=== PATIENT | male | born 1945 | race Caucasian/White ===

== ENCOUNTER 2017-01-04 05:31 | Day surgery (SDC) | payer BC ==
--- NOTE | ~2017-01-04 | EGD ---
EGD REPORT [facility] [address] [address] NAME: SCAR MILLS : 43 STATUS : [facility]#: [id number] AGE: 71 ADM/REG DATE : 01/04/17 MR#: [id number] REPORT SERV DATE: 01/07/17 DICTATED BY: HELGA ZIMMERMAN DATE: 01/07/17 REPORT STATUS : Draft [facility]: [facility] DATE: 01/07/17 Endoscopy Center Patient Name: Scar Mills Date of : 1945 Attending MD: HELGA ZIMMERMAN, Procedure Date No Time: 01/04/2017 Procedure: Colonoscopy Indications: Screening in patient at increased risk: Family history of 1st-degree relative with colorectal cancer Referring MD: NEREIDA WOOD Medicines: Monitored Anesthesia Care Complications: No immediate complications. Estimated blood loss: None. Procedure: Pre-Anesthesia Assessment: - ASA Grade Assessment: III - A patient with severe systemic disease. After I obtained informed consent, the scope was passed under direct vision. Throughout the procedure, the patient's blood pressure, pulse, and oxygen saturations were monitored continuously. The CF [id number] was introduced through the anus with the intention of advancing to the cecum. The scope was advanced to the descending colon before the procedure was aborted. Medications were given. The colonoscopy was performed without difficulty. The patient tolerated the procedure well. The quality of the bowel preparation was good. Findings: The perianal and digital rectal examinations were normal. A partially obstructing large mass was found in the distal descending colon. The mass was circumferential. Biopsies were taken with a cold forceps for histology. Verification of patient identification for the specimen was done. Estimated blood loss was minimal. Area was successfully injected with Spot (carbon black) for tattooing. This was located at about 50 cm from the anus. Multiple small-mouthed diverticula were found in the sigmoid colon and in the descending colon. Internal hemorrhoids were found during retroflexion and were Grade I (internal hemorrhoids that do not prolapse). Impression: - Partially obstructing tumor in the distal descending colon. Biopsied. Biopsied. Injected. - Diverticulosis in the sigmoid colon and in the descending colon. - Internal hemorrhoids. EGD REPORT [address] [address] NAME: SCAR MILLS : 43 STATUS : [facility] PAT#: [id number] AGE: 71 ADM/REG DATE : 01/04/17 MR#: [id number] REPORT SERV DATE: 01/07/17 DICTATED BY: HELGA ZIMMERMAN DATE: 01/07/17 REPORT STATUS : Draft TRANSCRIBED BY: [employer] DATE: 01/07/17 Recommendation: - Patient has a contact number available for emergencies. The signs and symptoms of potential delayed complications were discussed with the patient. Return to normal activities tomorrow. Written discharge instructions were provided to the patient. - Return to previous diet. - Continue present medications. - Await pathology results. - Return to referring physician. - Repeat colonoscopy after studies are complete for surveillance. Procedure Code(s): --- Professional --- 71515, 52, Colonoscopy, flexible, proximal to splenic flexure; with biopsy, single or multiple 93988, 52, Colonoscopy, flexible, proximal to splenic flexure; with directed submucosal injection(s), any substance Diagnosis Code(s): --- Professional --- D49.0, Neoplasm of unspecified behavior of digestive system K64.0, First degree hemorrhoids K57.30, Diverticulosis of large intestine without perforation or abscess without bleeding Z12.11, Encounter for screening for malignant neoplasm of colon Z80.0, Family history of malignant neoplasm of digestive organs CPT copyright 2013 [employer]. All rights reserved. The codes documented in this report are preliminary and upon intensive care medicine specialist review may be revised to meet current compliance requirements. HELGA ZIMMERMAN, 01/04/2017 7:56 AM Number of Addenda: 0 Note Initiated On: 01/04/2017 7:02 AM Scope Withdrawal Time 0 hours 0 minutes 0 seconds [id number] [place] [id number]
--- NOTE | ~2017-01-04 | EGD ---
EGD REPORT [facility] [address] [address] NAME: SCAR MILLS : 43 STATUS : REG [facility]#: [id number] AGE: 71 ADM/REG DATE : 01/04/17 MR#: [id number] REPORT SERV DATE: 01/04/17 DICTATED BY: HELGA ZIMMERMAN DATE: 01/04/17 REPORT STATUS : Draft [facility]: [facility] DATE: 01/04/17 Endoscopy Center Patient Name: Scar Mills Date of : 1945 Attending MD: HELGA ZIMMERMAN, Procedure Date No Time: 01/04/2017 Procedure: Colonoscopy Indications: Screening in patient at increased risk: Family history of 1st-degree relative with colorectal cancer Referring MD: NEREIDA WOOD Medicines: Monitored Anesthesia Care Complications: No immediate complications. Estimated blood loss: None. Procedure: Pre-Anesthesia Assessment: - ASA Grade Assessment: III - A patient with severe systemic disease. After I obtained informed consent, the scope was passed under direct vision. Throughout the procedure, the patient's blood pressure, pulse, and oxygen saturations were monitored continuously. The CF [id number] was introduced through the anus with the intention of advancing to the cecum. The scope was advanced to the descending colon before the procedure was aborted. Medications were given. The colonoscopy was performed without difficulty. The patient tolerated the procedure well. The quality of the bowel preparation was good. Findings: The perianal and digital rectal examinations were normal. A partially obstructing large mass was found in the distal descending colon. The mass was circumferential. Biopsies were taken with a cold forceps for histology. Verification of patient identification for the specimen was done. Estimated blood loss was minimal. Area was successfully injected with Spot (carbon black) for tattooing. This was located at about 50 cm from the anus. Multiple small-mouthed diverticula were found in the sigmoid colon and in the descending colon. Internal hemorrhoids were found during retroflexion and were Grade I (internal hemorrhoids that do not prolapse). Impression: - Partially obstructing tumor in the distal descending colon. Biopsied. Biopsied. Injected. - Diverticulosis in the sigmoid colon and in the descending colon. - Internal hemorrhoids. EGD REPORT [address] [address] NAME: SCAR MILLS : 43 STATUS : [facility] PAT#: [id number] AGE: 71 ADM/REG DATE : 01/04/17 MR#: [id number] REPORT SERV DATE: 01/04/17 DICTATED BY: HELGA ZIMMERMAN DATE: 01/04/17 REPORT STATUS : Draft TRANSCRIBED BY: [employer] DATE: 01/04/17 Recommendation: - Patient has a contact number available for emergencies. The signs and symptoms of potential delayed complications were discussed with the patient. Return to normal activities tomorrow. Written discharge instructions were provided to the patient. - Return to previous diet. - Continue present medications. - Await pathology results. - Return to referring physician. - Repeat colonoscopy after studies are complete for surveillance. Procedure Code(s): --- Professional --- 28683, 52, Colonoscopy, flexible, proximal to splenic flexure; with biopsy, single or multiple 15552, 52, Colonoscopy, flexible, proximal to splenic flexure; with directed submucosal injection(s), any substance Diagnosis Code(s): --- Professional --- D49.0, Neoplasm of unspecified behavior of digestive system K64.0, First degree hemorrhoids K57.30, Diverticulosis of large intestine without perforation or abscess without bleeding Z12.11, Encounter for screening for malignant neoplasm of colon Z80.0, Family history of malignant neoplasm of digestive organs CPT copyright 2013 [employer]. All rights reserved. The codes documented in this report are preliminary and upon second chef review may be revised to meet current compliance requirements. HELGA ZIMMERMAN, 01/04/2017 7:56 AM Number of Addenda: 0 Note Initiated On: 01/04/2017 7:02 AM Scope Withdrawal Time 0 hours 0 minutes 0 seconds [id number] [place] [id number]
--- NOTE | ~2017-01-04 | EGD ---
EGD REPORT [facility] [address] [address] NAME: SCAR MILLS : 43 STATUS : REG [facility]#: [id number] AGE: 71 ADM/REG DATE : 01/04/17 MR#: [id number] REPORT SERV DATE: 01/04/17 DICTATED BY: HELGA ZIMMERMAN DATE: 01/04/17 REPORT STATUS : Draft TRANSCRIBED BY: [facility] DATE: 01/04/17 Endoscopy Center Patient Name: Scar Mills Date of : 1945 Attending MD: HELGA ZIMMERMAN, Procedure Date No Time: 01/04/2017 Procedure: Colonoscopy Indications: Screening in patient at increased risk: Family history of 1st-degree relative with colorectal cancer Referring MD: NEREIDA WOOD Medicines: Monitored Anesthesia Care Complications: No immediate complications. Estimated blood loss: None. Procedure: Pre-Anesthesia Assessment: - ASA Grade Assessment: III - A patient with severe systemic disease. After I obtained informed consent, the scope was passed under direct vision. Throughout the procedure, the patient's blood pressure, pulse, and oxygen saturations were monitored continuously. The CF [id number] was introduced through the anus with the intention of advancing to the cecum. The scope was advanced to the descending colon before the procedure was aborted. Medications were given. The colonoscopy was performed without difficulty. The patient tolerated the procedure well. The quality of the bowel preparation was good. Findings: The perianal and digital rectal examinations were normal. A partially obstructing large mass was found in the distal descending colon. The mass was circumferential. Biopsies were taken with a cold forceps for histology. Verification of patient identification for the specimen was done. Estimated blood loss was minimal. Area was successfully injected with Spot (carbon black) for tattooing. This was located at about 50 cm from the anus. Multiple small-mouthed diverticula were found in the sigmoid colon and in the descending colon. Internal hemorrhoids were found during retroflexion and were Grade I (internal hemorrhoids that do not prolapse). Impression: - Partially obstructing tumor in the distal descending colon. Biopsied. Biopsied. Injected. - Diverticulosis in the sigmoid colon and in the descending colon. - Internal hemorrhoids. EGD REPORT [address] [address] NAME: SCAR MILLS : 43 STATUS : REG [facility] PAT#: [id number] AGE: 71 ADM/REG DATE : 01/04/17 MR#: [id number] REPORT SERV DATE: 01/04/17 DICTATED BY: HELGA ZIMMERMAN DATE: 01/04/17 REPORT STATUS : Draft TRANSCRIBED BY: [employer] DATE: 01/04/17 Recommendation: - Patient has a contact number available for emergencies. The signs and symptoms of potential delayed complications were discussed with the patient. Return to normal activities tomorrow. Written discharge instructions were provided to the patient. - Return to previous diet. - Continue present medications. - Await pathology results. - Return to referring physician. - Repeat colonoscopy after studies are complete for surveillance. Procedure Code(s): --- Professional --- 27498, 52, Colonoscopy, flexible, proximal to splenic flexure; with biopsy, single or multiple 05144, 52, Colonoscopy, flexible, proximal to splenic flexure; with directed submucosal injection(s), any substance Diagnosis Code(s): --- Professional --- D49.0, Neoplasm of unspecified behavior of digestive system K64.0, First degree hemorrhoids K57.30, Diverticulosis of large intestine without perforation or abscess without bleeding Z12.11, Encounter for screening for malignant neoplasm of colon Z80.0, Family history of malignant neoplasm of digestive organs CPT copyright 2013 [employer]. All rights reserved. The codes documented in this report are preliminary and upon legal manager review may be revised to meet current compliance requirements. HELGA ZIMMERMAN, 01/04/2017 7:56 AM Number of Addenda: 0 Note Initiated On: 01/04/2017 7:02 AM Scope Withdrawal Time 0 hours 0 minutes 0 seconds [id number] [place] [id number]
[~2017-01-04 05:31] MED LIST: ALIGN4 MG PO; ASA5GR PO; ASAB PO; ATEN25 PO; ELDERTONIC PO; FISH OIL1200 MG PO; FLOMAX4 PO; FLONASE NAS; GAS-X80 MG; LIPITOR40 PO; LORTAB 5 PO; NITROSTAT0.4 MG SL; PRIN10 PO; SUPER B COMP PO; TRAZ50 PO; ULTRAM50 PO; ZOCOR80 MG PO
[2017-01-22] MEDS ORDERED: LINZESS 290 M290 MCG PO (09:45)
== END 2017-01-04 23:59 | disposition home or self-care (01) ==
LOC: DMU 05:31
PROVIDERS: Internal Medicine Gastroenterology
PROC: 3E0H8GC Introduction of Other Therapeutic Substance into Lower GI, Via Natural or Artificial Opening Endoscopic (ICD-10-PCS; 2017-01-04)
PROC: 0DBM8ZX Excision of Descending Colon, Via Natural or Artificial Opening Endoscopic, Diagnostic (ICD-10-PCS; principal; 2017-01-04 07:30)
DX: Z12.11 Encounter for screening for malignant neoplasm of colon (principal); C18.6 Malignant neoplasm of descending colon; K64.0 First degree hemorrhoids; K57.30 Diverticulosis of large intestine without perforation or abscess without bleeding; E78.00 Pure hypercholesterolemia, unspecified; I10 Essential (primary) hypertension; I25.10 Atherosclerotic heart disease of native coronary artery without angina pectoris; Z88.8 Allergy status to other drugs, medicaments and biological substances; Z80.0 Family history of malignant neoplasm of digestive organs; Z96.652 Presence of left artificial knee joint; Z98.890 Other specified postprocedural states
CPT/HCPCS: 88305

== ENCOUNTER 2017-01-28 13:07 | Inpatient (IN) | payer BC ==
[2017-01-26 11:32] LABS: HEMATOCRIT 35.3 % (40.0-51.0); HEMOGLOBIN 11.6 g/dL (13.6-17.8)
[2017-01-26 11:43] LABS: CALCIUM, SERUM 8.8 MG/DL (8.5-10.4); CHLORIDE, SERUM 106 MMOL/L (96-112); CO2 (CARBON DIOXIDE) 30 MMOL/L (24-34); CREATININE 0.88 MG/DL (0.70-1.30); GFR AFRICAN AMERICAN 99 ML/MIN (>=60); GFR NON AFRICAN AMERICAN 86 ML/MIN (>=60); POTASSIUM, SERUM 4.9 MMOL/L (3.5-5.3); SODIUM, SERUM 139 MMOL/L (135-148)
[2017-01-26 11:44] LABS: BUN (BLOOD UREA NITROGEN) 16 MG/DL (6-23); GLUCOSE, SERUM 67 MG/DL (60-99)
--- NOTE | ~2017-01-28 | OP ---
Record Of Operation [facility] [address] [place]. 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 PROCEDURE: Laparoscopic low anterior resection with mobilization of splenic flexure. SURGEON: Tomi Anderson MD RESIDENT: Phuc Landa MD ANESTHESIA: General. ESTIMATED BLOOD LOSS: Less than 50 mL. INDICATION: Mr. Mills is a 71-year-old male who presented with a left-sided colon cancer, laparoscopic, possible open resection was offered to him. The risks including bleeding, infection, cardiac and pulmonary complications, DVT, anastomotic leak, abdominal wall complications need for open operation, recuperation among others were discussed with him, and he agreed to proceed. DESCRIPTION OF PROCEDURE: The patient was taken to the operating room, placed in a supine position. General anesthesia was induced. Lower extremities were placed in stirrups and well padded. The abdomen and perineum were prepped and draped, and a small incision was made in the umbilicus and Ainsley technique was utilized to place a 12 mm trocar. Air insufflation was obtained to 15 mmHg and then the right lower quadrant 12 mm trocar and an epigastric left lateral and suprapubic 5 mm trocars were placed. Evaluation of the abdomen revealed no evidence for intraperitoneal metastasis. The tumor itself was identified just at the junction of the descending and sigmoid colon and there was ink and an obvious mass. The sigmoid colon was then mobilized in the sigmoid recess identifying the ureter and then the hepatic. The splenic flexure and descending colon were completely mobilized using electrocautery around to the distal transverse colon. Having mobilized this, then I scored the sulcus just posterior to the inferior mesenteric artery and again identified the ureter from a medial to lateral approach and identified the inferior mesenteric artery and the pelvic sympathetics which were kept out of arm's way. I then clipped the inferior mesenteric artery twice on the stay side, once on the go side, and divided this and then dissected the inferior mesenteric vein at 2, came out underneath the duodenum and clipped it with Ligaclips and divided this and then subsequently dissected in a mesorectal specific technique. The rectum down to the level of the junction of the mid and upper rectum and then divided the mesentery of the rectum at a right angle using LigaSure device. The echelon stapler stick was then placed and fired and then the specimen was brought out of the enlarged umbilical port site and there was a lot of diverticulosis, so I went above that so that I had a good bowel for anastomosis. There was adequate length at that site and excellent blood supply, and therefore, the area was isolated with towels. A Pablo clamp Record Of Operation [facility] [address] [facility]. [address] NAME: SCAR MILLS : 43 STATUS : ADM IN [facility]#: [id number] AGE: 71 ADM/REG DATE : 01/28/17 MR#: [id number] REPORT SERV DATE: 01/30/17 DICTATED BY: GORDON ANDERSON DATE: 01/29/17 REPORT STATUS : Draft TRANSCRIBED BY: LUIS E DATE: 01/29/17 was placed on the specimen and the specimen divided. A 2-0 Prolene pursestring was placed and a 29 anvil was placed and the pursestring tied down and the anastomosis was then performed after placing the anvil back into the abdominal cavity and reestablishing pneumoperitoneum and the stapler was fired and the rings were removed but were not sent to pathologist and air insufflation revealed no air leak. There was no tension, appeared to have excellent blood supply. The abdomen was checked for hemostasis and then the midline port site was closed with 0 PDS and the right lower quadrant 12 mm site with 0 Vicryl and the skin loosely with 3-0 Vicryl and otherwise packed open. Dressing was applied. Counts were correct. He tolerated the procedure well. ARETHA/LUIS E Tomi Anderson M.D. / [id number] CC: Walter Evnagelista MD
[~2017-01-28 13:07] MED LIST changes: +LINZESS 290 M290 MCG PO
[2017-01-29 04:31] LABS: BASOPHILS 0 %; EOSINOPHILS 0 %; HEMATOCRIT 34.6 % (40.0-51.0); HEMOGLOBIN 11.8 g/dL (13.6-17.8); IMMATURE GRANULOCYTES 0.1 %; IMMATURE GRANULOCYTES ABSOLUTE 0.01 10/3/uL (0.0-0.11); LYMPHOCYTES 4.3 %; LYMPHOCYTES ABSOLUTE 0.38 10/3/uL (0.67-4.30); MEAN CORPUS HGB CONC 34.1 g/dL (32.0-36.0); MEAN CORPUSCULAR HEMOGLOB 28.9 pg (26.0-34.0); MEAN CORPUSCULAR VOLUME 84.6 fL (80-100); MEAN PLATELET VOLUME 10.6 fL (9.2-13.0); MONOCYTES 2.8 %; MONOCYTES ABSOLUTE 0.25 10/3/uL (0.21-1.20); NEUTROPHILS 92.8 %; NEUTROPHILS ABSOLUTE 8.16 10/3/uL (2.02-8.40); PLATELET COUNT 163 10/3/uL (150-400); RBC DISTRIBUTION WIDTH 13.5 % (12.0-16.0); RED CELL COUNT 4.09 10/6/uL (4.7-6.1); WHITE BLOOD CELLS 8.8 10/3/uL (4.5-10.5)
[2017-01-29 04:32] LABS: MANUAL DIFF NO %
[2017-01-29 05:03] LABS: BUN (BLOOD UREA NITROGEN) 16 MG/DL (6-23); CALCIUM, SERUM 8.5 MG/DL (8.5-10.4); CHLORIDE, SERUM 107 MMOL/L (96-112); CREATININE 1.19 MG/DL (0.70-1.30); GFR AFRICAN AMERICAN 70 ML/MIN (>=60); GFR NON AFRICAN AMERICAN 61 ML/MIN (>=60); POTASSIUM, SERUM 4.8 MMOL/L (3.5-5.3); SODIUM, SERUM 139 MMOL/L (135-148)
[2017-01-29 05:17] LABS: CO2 (CARBON DIOXIDE) 22 MMOL/L (24-34); GLUCOSE, SERUM 203 MG/DL (60-99)
[2017-01-30] MEDS ORDERED: PERCOCET 7.5/321 TAB PO (09:41)
== END 2017-01-30 11:03 | disposition home or self-care (01) | DRG 330 ==
LOC: SDC/OF 13:07 → 5SO 21:31
PROVIDERS: Colon & Rectal Surgery
PROC: 0DBN4ZZ Excision of Sigmoid Colon, Percutaneous Endoscopic Approach (ICD-10-PCS; 2017-01-28)
PROC: 0DBP4ZZ Excision of Rectum, Percutaneous Endoscopic Approach (ICD-10-PCS; principal; 2017-01-28 14:45)
DX: C18.6 Malignant neoplasm of descending colon (principal); K62.5 Hemorrhage of anus and rectum; I25.10 Atherosclerotic heart disease of native coronary artery without angina pectoris; I25.2 Old myocardial infarction; M81.0 Age-related osteoporosis without current pathological fracture; Z96.652 Presence of left artificial knee joint; Z79.899 Other long term (current) drug therapy; Z95.1 Presence of aortocoronary bypass graft; Z80.8 Family history of malignant neoplasm of other organs or systems; Z83.3 Family history of diabetes mellitus; Z88.5 Allergy status to narcotic agent; Z79.82 Long term (current) use of aspirin
CPT/HCPCS: 80048; 82962; 85014; 85018; 85025; 88309; 88341; 88342; 93005; A9270-GY; J0690; J1170; J2250; J2270; J2370; J2405; J2550; J2710; J2795; J3010; P9045